=== PATIENT | male | born 1960 | race Caucasian/White ===

== ENCOUNTER → 2022-10-02 | Outpatient (REF) | payer OTHER ==
[2022-10-02 18:52] LABS: CREATININE, URINE 127.6 MG/DL
[2022-10-02 18:55] LABS: MAU/CREAT RATIO 14.8 MCG/MG (0.0-30.0)
== END ==
LOC: M LAB REF 16:54
PROVIDERS: ATTEND Nurse Practitioner Family
DX: E11.65 Type 2 diabetes mellitus with hyperglycemia (principal)

== ENCOUNTER 2025-01-15 13:21 | Emergency (ER) | payer OTHER ==
[~2025-01-15] VITALS: Ht 167.6 cm; Wt 135.0 kg
[2025-01-15] MEDS: ASPIRIN 81MG CHEW TABLET PO ONE (14:13)
[2025-01-15 14:14] VITALS: BP 198/89
[2025-01-15] MEDS: NITROGLYCERIN 0.4MG SUBL TABLET SL PRN (14:14)
[2025-01-15 14:17] LABS: BASO % 0.3 % (0.0-1.0); EOS # 0.1 10^3/uL (0.0-0.5); EOS % 1.4 % (0.0-3.0); HEMATOCRIT 47.4 % (42.0-52.0); HEMOGLOBIN 15.3 g/dl (13.5-17.5); LYMPH # 0.8 10^3/uL (1.5-5.0); LYMPH % 11.3 % (24.0-44.0); MEAN CORPUSCULAR HEMOGLOBIN 27.8 pg (27.0-33.0); MEAN CORPUSCULAR HGB CONC 32.3 g/dl (32.0-36.5); MONO # 0.5 10^3/uL (0.0-0.8); MONO % 6.9 % (2.0-8.0); NEUTROPHILS # 5.6 10^3/uL (1.5-8.5); NEUTROPHILS % 79.4 % (36.0-66.0); PLATELET COUNT, AUTOMATED 141 10^3/uL (150-450); RED BLOOD COUNT 5.51 10^6/uL (4.30-6.10); WHITE BLOOD COUNT 7.1 10^3/uL (4.0-10.0)
[2025-01-15 14:40] LABS: CK-MB VALUE MASS < 1.0 NG/ML (<3.6)
[2025-01-15 14:41] LABS: LIPASE 22 U/L (12-53)
[2025-01-15 14:44] LABS: ALBUMIN 3.6 G/DL (3.2-5.2); ALKALINE PHOSPHATASE 70 U/L (40-129); ALT/SGPT 23 U/L (7.0-40); AST/SGOT 15 U/L (<34); BILIRUBIN,DIRECT 0.3 MG/DL (<0.4); BILIRUBIN,TOTAL 0.9 MG/DL (0.3-1.2); BLOOD UREA NITROGEN 23 MG/DL (9-23); CARBON DIOXIDE LEVEL 31 MMOL/L (20-31); CHLORIDE LEVEL 99 MMOL/L (98-107); CREATININE FOR GFR 1.19 MG/DL (0.70-1.30); GLOMERULAR FILTRATION RATE 67.4 (>49); GLUCOSE, FASTING 249 MG/DL (74-106); POTASSIUM SERUM 4.2 MMOL/L (3.5-5.1); SODIUM LEVEL 138 MMOL/L (136-145); TOTAL PROTEIN 6.7 G/DL (5.7-8.2)
[2025-01-15 14:45] LABS: FREE T4 1.21 NG/DL (0.89-1.76)
[2025-01-15 14:46] LABS: THYROID STIMULATING HORMONE 2.134 uIU/ML (0.55-4.78)
[2025-01-15 14:51] LABS: CPK CREATINE PHOSPHOKINASE 35 U/L (46-171); MB/CK RELATIVE INDEX 2.85 (< OR =4)
[2025-01-15] MEDS ORDERED: ISOVUE-370 76% 100ML VIAL As Ordered ONE (15:17)
[2025-01-15] MEDS: MORPHINE 2 MG/ML 1ML VIAL IV PRN (15:19)
[2025-01-15 15:49] LABS: CK-MB VALUE MASS < 1.0 NG/ML (<3.6)
[2025-01-15 15:53] LABS: CPK CREATINE PHOSPHOKINASE < 15 U/L (46-171)
[2025-01-15] MEDS: PERCOCET 5MG/325MG TAB PO ONE (17:27)
[2025-01-15] MEDS: HEPARIN SOD 5000UNITS/ML 1ML VIAL/SYRINGE IV ONE (17:35)
[2025-01-15] MEDS: HEPARIN DRIP 25,000 UNITS in IV 1 EA IV SCH (17:36)
[2025-01-15 19:30] VITALS: BP 152/75; TEMP 98.3; O2SAT 95
== END 2025-01-15 19:35 | disposition short-term general hospital (02) ==
LOC: M ED 13:21
DX: I20.0 Unstable angina (principal); R00.0 Tachycardia, unspecified; I10 Essential (primary) hypertension; E78.5 Hyperlipidemia, unspecified; F41.9 Anxiety disorder, unspecified; F10.10 Alcohol abuse, uncomplicated
CPT/HCPCS: 71045; 71275; 80048; 80076; 82550; 82553; 83690; 83880; 84439; 84443; 84484; 85025; 85730; 93005; 96365; 96366; 96375; 99285; Q9967

== ENCOUNTER 2025-01-21 08:34 | Emergency (ER) | payer OTHER ==
[~2025-01-21] VITALS: Ht 167.6 cm; Wt 129.2 kg
[2025-01-21] MEDS ORDERED: TICAGRELOR (08:40)
[2025-01-21 09:18] LABS: BASO % 0.4 % (0.0-1.0); EOS # 0.1 10^3/uL (0.0-0.5); EOS % 1.9 % (0.0-3.0); HEMATOCRIT 43.4 % (42.0-52.0); HEMOGLOBIN 14.4 g/dl (13.5-17.5); LYMPH # 1.2 10^3/uL (1.5-5.0); LYMPH % 16.5 % (24.0-44.0); MEAN CORPUSCULAR HEMOGLOBIN 28.7 pg (27.0-33.0); MEAN CORPUSCULAR HGB CONC 33.2 g/dl (32.0-36.5); MEAN CORPUSCULAR VOLUME 86.6 fl (80.0-96.0); MONO # 0.5 10^3/uL (0.0-0.8); MONO % 6.4 % (2.0-8.0); NEUTROPHILS # 5.4 10^3/uL (1.5-8.5); NEUTROPHILS % 73.6 % (36.0-66.0); PLATELET COUNT, AUTOMATED 229 10^3/uL (150-450); RED BLOOD COUNT 5.01 10^6/uL (4.30-6.10); WHITE BLOOD COUNT 7.3 10^3/uL (4.0-10.0)
[2025-01-21 09:45] LABS: CK-MB VALUE MASS < 1.0 NG/ML (<3.6)
[2025-01-21 09:47] LABS: BLOOD UREA NITROGEN 22 MG/DL (9-23); CALCIUM LEVEL 9.3 MG/DL (8.3-10.6); CARBON DIOXIDE LEVEL 25 MMOL/L (20-31); CHLORIDE LEVEL 102 MMOL/L (98-107); CREATININE FOR GFR 1.24 MG/DL (0.70-1.30); GLOMERULAR FILTRATION RATE 64.1 (>49); GLUCOSE, FASTING 210 MG/DL (74-106); POTASSIUM SERUM 3.9 MMOL/L (3.5-5.1); SODIUM LEVEL 139 MMOL/L (136-145)
[2025-01-21 09:52] LABS: INR 0.95; PARTIAL THROMBOPLASTIN TIME 26.8 SECONDS (24.8-34.2)
[2025-01-21 09:54] LABS: CPK CREATINE PHOSPHOKINASE 28 U/L (46-171); MB/CK RELATIVE INDEX 3.57 (< OR =4)
[2025-01-21 13:30] VITALS: O2SAT 97
[2025-01-21 13:39] VITALS: BP 162/89; TEMP 97.2
== END 2025-01-21 13:44 | disposition home or self-care (01) ==
LOC: M ED 08:34
DX: R07.89 Other chest pain (principal); I25.119 Atherosclerotic heart disease of native coronary artery with unspecified angina pectoris; I25.2 Old myocardial infarction; E11.9 Type 2 diabetes mellitus without complications; E78.5 Hyperlipidemia, unspecified; F10.10 Alcohol abuse, uncomplicated

== ENCOUNTER 2025-03-16 05:36 | Emergency (ER) | payer OTHER ==
[~2025-03-16] VITALS: Ht 167.6 cm; Wt 130.0 kg
[~2025-03-16 05:36] MED LIST: TICAGRELOR
[2025-03-16 07:50] LABS: BASO # 0.0 10^3/uL (0.0-0.2); BASO % 0.5 % (0.0-1.0); EOS # 0.2 10^3/uL (0.0-0.5); EOS % 2.2 % (0.0-3.0); LYMPH # 1.9 10^3/uL (1.5-5.0); LYMPH % 22.6 % (24.0-44.0); MONO # 0.6 10^3/uL (0.0-0.8); MONO % 7.2 % (2.0-8.0); NEUTROPHILS # 5.7 10^3/uL (1.5-8.5); NEUTROPHILS % 66.7 % (36.0-66.0); PLATELET COUNT, AUTOMATED 211 10^3/uL (150-450)
[2025-03-16 08:17] LABS: ALT/SGPT 22 U/L (7.0-40); AST/SGOT 17 U/L (<34); CALCIUM LEVEL 9.0 MG/DL (8.3-10.6); CARBON DIOXIDE LEVEL 27 MMOL/L (20-31); CHLORIDE LEVEL 104 MMOL/L (98-107); CK-MB VALUE MASS < 1.0 NG/ML (<3.6); CPK CREATINE PHOSPHOKINASE 33 U/L (46-171); CREATININE FOR GFR 1.18 MG/DL (0.70-1.30); GLOMERULAR FILTRATION RATE 68.1 (>49); POTASSIUM SERUM 4.1 MMOL/L (3.5-5.1); SODIUM LEVEL 145 MMOL/L (136-145)
[2025-03-16] MEDS ORDERED: ISOVUE-370 76% 100 ML VIAL As Ordered ONE (08:23)
[2025-03-16 08:57] LABS: INR 0.95
[2025-03-16 09:45] LABS: CK-MB VALUE MASS < 1.0 NG/ML (<3.6)
[2025-03-16] MEDS ORDERED: TICA90TA PO (09:47)
[2025-03-16] MEDS ORDERED: DUPI300P SUBQ (09:47)
[2025-03-16] MEDS ORDERED: HYDR-3490 PO (09:47)
[2025-03-16] MEDS ORDERED: LISI20TA33 PO (09:47)
[2025-03-16] MEDS ORDERED: SIMV20TA22 PO (09:47)
[2025-03-16] MEDS ORDERED: PANT40TA29 PO (09:47)
[2025-03-16] MEDS ORDERED: GABA-1490 PO (09:47)
[2025-03-16] MEDS ORDERED: BASA100I SUBQ (09:47)
[2025-03-16] MEDS ORDERED: NITR0.4S14 PO (09:47)
[2025-03-16] MEDS ORDERED: ALLO300T2 PO (09:47)
[2025-03-16] MEDS ORDERED: PRED10TA2 PO (09:47)
[2025-03-16] MEDS ORDERED: HOME MED LIST COMPLETE! XX SCH (09:50)
[2025-03-16 09:53] LABS: CPK CREATINE PHOSPHOKINASE 47 U/L (46-171)
[2025-03-16 10:49] VITALS: TEMP 98
[2025-03-16 11:00] VITALS: BP 151/67; O2SAT 98
== END 2025-03-16 11:11 | disposition home or self-care (01) ==
LOC: M ED 05:36
DX: R06.02 Shortness of breath (principal); K43.9 Ventral hernia without obstruction or gangrene; E11.9 Type 2 diabetes mellitus without complications; I25.2 Old myocardial infarction; E78.5 Hyperlipidemia, unspecified; G47.33 Obstructive sleep apnea (adult) (pediatric); F10.10 Alcohol abuse, uncomplicated; Z79.4 Long term (current) use of insulin; Z79.52 Long term (current) use of systemic steroids; Z79.899 Other long term (current) drug therapy
CPT/HCPCS: 36415; 71275; 80048; 80076; 82550; 82553; 83880; 84443; 84484; 85025; 85610; 85730; 93005; 93041; 94760; 99285; Q9967